=== PATIENT | male | born 1995 | race Caucasian/White ===

== ENCOUNTER 2017-04-11 18:29 | Inpatient (IN) | payer OTHER ==
[~2017-04-11] VITALS: Ht 185.4 cm; Wt 75.4 kg
[2017-04-11] MEDS ORDERED: MORPHINE SULFATE 4 MG/ML, 1ML ONE (18:59)
[2017-04-11] MEDS ORDERED: LORazepam 2 MG/ML, 1ML ONE ×3 (18:59→21:20)
[2017-04-11] MEDS ORDERED: SODIUM CHLORIDE FLUSH 10ML SYR IVF ONE (19:00)
[2017-04-11] MEDS ORDERED: SODIUM CHLORIDE 0.9% 1,000ML IVBOLUS ONE (19:00)
[2017-04-11] MEDS ORDERED: MORPHINE SULFATE 4 MG/ML, 1ML IVPush ONE (19:00)
[2017-04-11] MEDS ORDERED: THIAMINE 100 MG in SODIUM CHLORIDE 0.9% 50 ML IVPB ONE (19:00)
[2017-04-11] MEDS ORDERED: ONDANSETRON 2MG/ML, 2ML IVPush ONE (19:00)
[2017-04-11] MEDS: LORazepam 2 MG/ML, 1ML IVPush PRN ×4 (19:10→21:54)
[2017-04-11] MEDS ORDERED: ONDANSETRON 2MG/ML, 2ML ONE (19:35)
[2017-04-11 19:56] LABS: ASPARTATE AMINO TRANSFERASE 139 U/L (15-37); BLOOD UREA NITROGEN 10 mg/dL (7-18)
[2017-04-11] MEDS ORDERED: LORazepam 2 MG/ML, 1ML IVPush ONE (20:00)
[2017-04-11] MEDS ORDERED: PROPOFOL 10 MG/ML, 20ML ONE (20:53)
[2017-04-11] MEDS ORDERED: PROPOFOL 10 MG/ML, 20ML IVPush ONE (21:00)
[2017-04-11] MEDS ORDERED: MAGNESIUM SULFATE 1 GM, THIAMINE 100 MG, FOLIC ACID 1 MG, MVI ADULT 10 ML in SODIUM CHL... IV ONE (21:30)
[2017-04-11] MEDS ORDERED: LORazepam 1MG TABLET PO PRN ×4 (22:30)
[2017-04-11] MEDS ORDERED: LORazepam 2 MG/ML, 1ML IV PRN ×4 (22:30)
[2017-04-11] MEDS ORDERED: POLYETHYLENE GLYCOL 17 GM PACKET PO PRN (22:30)
[2017-04-11] MEDS ORDERED: BISACODYL 10 MG SUPP PR PRN (22:30)
[2017-04-11] MEDS ORDERED: morphine SULFATE 10 MG/ML, 1ML IVPush PRN (22:30)
[2017-04-11] MEDS ORDERED: ONDANSETRON 2MG/ML, 2ML IVPush PRN (22:30)
[2017-04-11] MEDS ORDERED: LORazepam 0.5MG TABLET PO PRN (22:30)
[2017-04-11] MEDS ORDERED: NICOTINE 7 MG/24 HR PATCH.TD24 TD SCH (22:30)
[2017-04-11 23:00] VITALS: BP 168/98
[2017-04-11 23:40] LABS: HIV 1&2 ANTIBODY SCREEN Nonreactive (Nonreactive); HIV-1 p24 ANTIGEN Nonreactive (Nonreactive)
[2017-04-12] MEDS: HEPARIN 5,000 UNITS/ML, 1ML SQ SCH ×3 (01:12→17:25)
[2017-04-12 02:55] VITALS: BP 167/112
[2017-04-12] MEDS: OXYcodone IR 5MG TABLET PO PRN ×3 (03:21→09:22)
[2017-04-12] MEDS: hydrALAzine 20 MG/ML, 1ML IVPush PRN ×2 (03:22→10:30)
[2017-04-12 04:04] LABS: DAU SCREEN DISCLAIMER
[2017-04-12 05:57] LABS: ASPARTATE AMINO TRANSFERASE 104 U/L (15-37); BLOOD UREA NITROGEN 6 mg/dL (7-18)
[2017-04-12] MEDS: SODIUM CHLORIDE 0.9% 1,000 ML IV SCH ×2 (06:30→12:47)
[2017-04-12 08:26] VITALS: BP 158/115
[2017-04-12] MEDS ORDERED: THIAMINE 100MG TABLET PO SCH (09:00)
[2017-04-12] MEDS ORDERED: LACTULOSE 10 GM/15 ML UDC PO SCH (09:00)
[2017-04-12] MEDS ORDERED: MULTIVITAMIN 1 TABLET PO SCH (09:00)
[2017-04-12] MEDS ORDERED: FOLIC ACID 1 MG TABLET PO SCH (09:00)
[2017-04-12] MEDS: LORazepam 2 MG/ML, 1ML IV PRN ×3 (09:22→17:22)
[2017-04-12] MEDS ORDERED: CHLORDIAZEPOXIDE 25 MG CAPSULE PO PRN (09:30)
[2017-04-12] MEDS ORDERED: cloniDINE 0.1MG PATCH TD SCH (11:30)
[2017-04-12 14:39] VITALS: BP 144/50
[2017-04-12 18:55] VITALS: BP 176/114
[2017-04-12] MEDS ORDERED: METOPROLOL TARTRATE 25 MG TABLET PO SCH (20:00)
[2017-04-12] MEDS ORDERED: SODIUM CHLORIDE 0.9% 1,000 ML IV SCH (22:15)
[2017-04-13 13:35] LABS: HEP B SURF. AB 4.8 mIU/mL (0.0-10.0)
[2017-04-13 14:11] LABS: HEPATITIS C VIRUS ANTIBODY Nonreactive (Nonreactive)
== END 2017-04-12 20:00 | disposition left against medical advice (07) | DRG 894 ==
LOC: ED 19:03 → EDIP 21:34 → 4WST 22:40
PROVIDERS: ADMIT Internal Medicine; ATTEND Internal Medicine
PROC: 0RSJXZZ Reposition Right Shoulder Joint, External Approach (ICD-10-PCS; principal; 2017-04-11)
DX: F10.239 Alcohol dependence with withdrawal, unspecified (principal); S43.014A Anterior dislocation of right humerus, initial encounter; K70.10 Alcoholic hepatitis without ascites; F17.210 Nicotine dependence, cigarettes, uncomplicated; F41.9 Anxiety disorder, unspecified; I10 Essential (primary) hypertension; D75.89 Other specified diseases of blood and blood-forming organs; R56.9 Unspecified convulsions; G89.11 Acute pain due to trauma; D72.828 Other elevated white blood cell count; W19.XXXA Unspecified fall, initial encounter; Y99.8 Other external cause status; Y92.89 Other specified places as the place of occurrence of the external cause; Y93.89 Activity, other specified; Z71.6 Tobacco abuse counseling; Z88.6 Allergy status to analgesic agent; Z91.19 Patient's noncompliance with other medical treatment and regimen
CPT/HCPCS: 36415; 70450; 72125; 76700; 80053; 80061; 80307; 81001; 82306; 82607; 83036; 83735; 84439; 84443; 85025; 86703; 86705; 86706; 86709; 86803; 87340; 87899; 96367; 96374; 96375; 96376; J1644; J3411; J3475; G0435; J0360; J2060; J7030